=== PATIENT | female | born 1975 | race Caucasian/White ===

== ENCOUNTER 2023-04-14 09:08 | Outpatient (OUT) | payer OTHER, SELFPAY ==
--- NOTE | 2023-04-14 09:10 | CT_ITS ---
The [address] [address] Patient Name: STEPHAN WATTS MRN: [id number] date: 1975 Sex: F Assigned Patient Location: CT Current Patient Location: CT Accession/Order Number: [id number] Exam Date: 04/14/2023 09:12 Report Date: 04/14/2023 09:35 At the request of: EDGAR LLOYD Procedure: CT chest wo con EXAMINATION: CT chest wo con HISTORY: Multiple Pulmonary Nodules R91.8 COMPARISON: 04/03/2022, 10/09/2021, 07/10/2019 TECHNIQUE: Multi-planar CT images were created with IV contrast. Axial, Coronal, and Sagittal images. Dose reduction techniques were achieved by using automated exposure control and/or adjustment of mA and/or kV according to patient size and/or use of iterative reconstruction technique. FINDINGS: LUNGS: Again demonstrated are multiple solid pulmonary nodules the 2 largest measuring 1.1 cm left upper lobe axial image #16 and 1.5 cm left upper lobe axial image #39. Multiple additional subcentimeter pulmonary nodules. Nodules are stable both in number and size extending back to June 2021. No new significant pulmonary nodule or mass is observed PLEURA: No mass, effusion, or pneumothorax. VASCULATURE: No abnormality. JANIE: No mass or adenopathy. MEDIASTINUM: Left thyroid hypodense nodule CARDIAC: No enlargement, pericardial thickening, or significant calcification. AORTA: Prominent ascending aorta measuring 4 cm in diameter CHEST WALL: No mass or axillary adenopathy. BONES: No bone lesion or fracture. LIMITED ABDOMEN: Hypodensity along the anterior margin of the spleen, stable OTHER: Negative. CT/CT chest wo con IMPRESSION: Stable scattered pulmonary nodules, unchanged in both number and size extending back through June 2021. Electronically authenticated by: ASHANTI COOPER Date: 04/14/2023 09:35
== END 2023-04-14 09:09 | disposition home or self-care (01) ==
LOC: CT 09:08
PROVIDERS: PCP Family Medicine; Visit Provider Internal Medicine
DX: R91.8 Other nonspecific abnormal finding of lung field (principal)
CPT/HCPCS: 71250